=== PATIENT | female | born 1970 | race African-American/Black ===

== ENCOUNTER 2018-05-04 10:41 | Emergency (ER) | payer OTHER, MEDICAID ==
[~2018-05-04] VITALS: Ht 172.7 cm; Wt 88.2 kg
[2018-05-04] MEDS ORDERED: FURO-152 PO (10:46)
[2018-05-04] MEDS ORDERED: ACETAMINOPHEN 500 MG TABLET PO ONE (11:30)
[2018-05-04] MEDS ORDERED: ONDANSETRON HCL 4 MG/2 ML VIAL IVP ONE (11:30)
[2018-05-04 11:46] LABS: BASOPHILS % (AUTO) 1.2 % (0.0-2.0); EOSINOPHILS % (AUTO) 1.6 % (1.0-6.0); HEMATOCRIT 37.5 % (36-46); HEMOGLOBIN 12.7 g/dL (12.0-16.0); LYMPHOCYTES # (AUTO) 1.9 K/uL (1.0-4.8); LYMPHOCYTES % (AUTO) 25.8 % (22.0-44.0); MEAN CORPUSCULAR HEMOGLOBIN 29.4 pg (26.0-34.0); MEAN CORPUSCULAR HGB CONC 33.8 G/dL (31.0-37.0); MEAN CORPUSCULAR VOLUME 87 fL (80-100); MONOCYTES # (AUTO) 0.4 K/uL (0.1-1.0); MONOCYTES % (AUTO) 5.7 % (2.0-9.0); NEUTROPHILS # (AUTO) 4.8 K/uL (1.8-7.7); NEUTROPHILS % (AUTO) 65.7 % (40.0-70.0); PLATELET COUNT (AUTO) 307 K/uL (150-450); RED BLOOD CELL COUNT(AUTO) 4.31 MIL/uL (4.00-5.20); RED CELL DISTRIBUTION WIDTH 13.7 % (11.5-14.5)
[2018-05-04 11:58] LABS: ANION GAP 6 mmol/L (8-16); CARBON DIOXIDE 28 mmol/L (22-29); CHLORIDE 105 mmol/L (98-107); GLOMERULAR FILTR. RATE CALC > 60 mL/min (>60); GLUCOSE,RANDOM 92 mg/dL (70-110); SODIUM SERUM 139 mmol/L (136-145); UREA NITROGEN, BLOOD 10 mg/dL (7-18)
[2018-05-04 12:12] LABS: ALANINE AMINOTRANSFERASE 27 U/L (12-78); ALBUMIN 3.9 g/dL (3.4-5.0); ALKALINE PHOSPHATASE 67 U/L (46-116); ASPARTATE AMINOTRANSFERASE 17 U/L (15-37); HCG,QUANTITATIVE < 1 mIU/mL (0-6); TOTAL PROTEIN, SERUM 7.9 g/dL (6.4-8.2)
[2018-05-04] MEDS ORDERED: KETOROLAC TROMETHAMINE 30 MG/ML VIAL IVP ONE (12:30)
[2018-05-04 13:30] VITALS: BP 130/87
== END 2018-05-04 13:32 | disposition home or self-care (01) ==
LOC: EMS 10:41
DX: R60.0 Localized edema (principal); R51 Headache; F17.210 Nicotine dependence, cigarettes, uncomplicated
CPT/HCPCS: 36415; 80053; 84702; 85025; 85379; 93971; 96374; 96375; 99285; 99406; J1885; J2405; 96376

== ENCOUNTER 2023-09-05 08:14 | Emergency (ER) | payer MEDICAID, OTHER ==
[~2023-09-05] VITALS: Ht 172.7 cm; Wt 88.6 kg
[~2023-09-05 08:14] MED LIST: FURO-152 PO
[2023-09-05 08:41] VITALS: TEMP 98.3
[2023-09-05] MEDS ORDERED: AMOX1TAB15 PO (08:41)
[2023-09-05] MEDS ORDERED: PRED50TA2 PO (08:41)
[2023-09-05 12:43] VITALS: BP 128/58; PULSE 74; RESP 16
[2023-09-05] MEDS ORDERED: IBUP-1492 PO (12:52)
[2023-09-05] MEDS ORDERED: CYCL-309 PO (12:59)
[2023-09-05] MEDS ORDERED: IBUPROFEN 600 MG TABLET PO ONE (13:00)
[2023-09-05] MEDS ORDERED: OxyCODONE HCL/ACETAMINOPHEN 5-325 MG TABLET PO ONE (13:00)
[2023-09-05] MEDS ORDERED: PERCT PO (13:18)
== END 2023-09-05 13:23 | disposition home or self-care (01) ==
LOC: EMS 08:14
DX: M25.561 Pain in right knee (principal); F17.210 Nicotine dependence, cigarettes, uncomplicated
CPT/HCPCS: 29505; 73700; 99284; 73562-TC; Z7502; Z7610